=== PATIENT | male | born 1980 | race Caucasian/White ===

== ENCOUNTER 2025-01-16 16:34 | Emergency (ER) | payer OTHER ==
[~2025-01-16] VITALS: Ht 177.8 cm; Wt 118.0 kg
[2025-01-16 16:41] VITALS: TEMP 36.6; O2SAT 99
[2025-01-16] MEDS ORDERED: LIDO-53 TP (17:18)
[2025-01-16] MEDS ORDERED: IBUP-2029 MT (17:18)
[2025-01-16] MEDS ORDERED: CYCL10TA21 MT (17:18)
[2025-01-16 17:34] VITALS: BP 145/87; PULSE 90; RESP 18; O2SAT 100
== END 2025-01-16 18:56 | disposition home or self-care (01) ==
LOC: ER 16:34
DX: S13.4XXA Sprain of ligaments of cervical spine, initial encounter (principal); S50.312A Abrasion of left elbow, initial encounter; Z79.899 Other long term (current) drug therapy; V43.52XA Car driver injured in collision with other type car in traffic accident, initial encounter; Y93.89 Activity, other specified; Y92.410 Unspecified street and highway as the place of occurrence of the external cause; Y99.8 Other external cause status
CPT/HCPCS: 99283